=== PATIENT | male | born 1960 | race Caucasian/White ===

== ENCOUNTER 2018-10-05 07:29 | Emergency (ER) | payer BC ==
[~2018-10-05] VITALS: Ht 180.3 cm; Wt 125.7 kg
[~2018-10-05 07:29] MED LIST: ACETAMINOPHEN-1 EAC1 PO; NOHOMEMEDICATIONS
[2018-10-05] MEDS ORDERED: LISINOPRIL10 MG PO (07:45)
[2018-10-05] MEDS ORDERED: ZOCOR20 MG PO (07:45)
[2018-10-05 07:57] LABS: ABSOLUTE NEUTROPHILS 5.8 thou/uL (1.4-8.2); BASOPHILS 0.7 % (0.0-2.0); EOSINOPHILS 3.2 % (0.0-3.0); HEMATOCRIT 38.5 % (42.0-52.0); HEMOGLOBIN 12.9 gm/dL (14.0-18.0); LYMPHOCYTES 20.4 % (24.0-44.0); MCH 30.2 pg (26.0-34.0); MCHC 33.4 g/dL (28.0-37.0); MCV 90.4 fL (80.0-100.0); MONOCYTES 7.1 % (1.0-8.0); PLATELET COUNT 223 thou/uL (150-400); POLYS 68.6 % (36.0-66.0); RBC 4.25 mil/uL (4.50-6.00); RDW 13.7 % (10.5-14.5); WBC 8.4 thou/uL (4.0-11.0)
[2018-10-05 08:09] LABS: ANION GAP 13 mmol/L (7-16); BUN 15 mg/dL (7-18); CALCIUM 9.4 mg/dL (8.5-10.1); CHLORIDE 102 mmol/L (98-107); CO2 24 mmol/L (21-32); CREATININE 0.9 mg/dL (0.7-1.3); GLUCOSE 118 mg/dL (74-106); SODIUM 139 mmol/L (136-145)
[2018-10-05 08:19] LABS: SGOT 43 U/L (15-37); SGPT 62 U/L (30-65); TOTAL BILIRUBIN 0.8 mg/dL (<0.1-1.0); TOTAL PROTEIN 7.6 g/dL (6.4-8.2); TROPONIN-I <0.06 ng/mL (<0.06)
[2018-10-05 10:15] VITALS: BP 142/89
--- NOTE | 2018-10-06 08:08 | EKG ---
[place] [address] [address] [facility] [place] [address] ELECTROCARDIOGRAM REPORT Name: STEPHANE SCOTT Room #: [facility]ENT[facility]ladimir[facility] [id number] ������������������ Admission: 10/05/18 ������������������ Attend Phys: Discharge: 10/05/18 ������������������ Date of : 58 Report #: [id number] ����������������������������������������������������������������� [id number] THIS REPORT FOR: //name// [facility] ED Test Date: 2018-10-05 Test Time: 07:42:03 Pat Name: STEPHANE SCOTT Department: Room: Gender: M [employer] Operator: : 1960 Requested By: Gisselle Whittaker Order Number: [id number] MD: Dallas Howard Measurements Intervals [place] Rate: 72 P: 61 [place]: 163 QRS: 68 QRSD: 98 T: 15 QT: 410 QTc: 449 Interpretive Statements Sinus rhythm Normal tracing No previous ECG available for comparison Electronically Signed On 10-06-2018 8:07:50 CDT by Dallas Howard [email or web address] ��������������������������������������������� <ELECTRONICALLY SIGNED> ���������������������������������������� By: Dallas Howard MD, [facility] ��������������������������������������������� 10/06/18 [id number] Dallas Howard MD, FAC /EPI
== END 2018-10-05 10:15 | disposition home or self-care (01) ==
LOC: ER 07:29
PROVIDERS: Emergency Medicine
DX: I10 Essential (primary) hypertension (principal); F17.210 Nicotine dependence, cigarettes, uncomplicated; Z88.0 Allergy status to penicillin